=== PATIENT | female | born 1955 | race Caucasian/White ===

== ENCOUNTER 2017-05-09 18:15 | Emergency (ER) | payer OTHER, MEDICAID ==
[2017-05-09 18:37] VITALS: BP 135/76; PULSE 68; RESP 18; TEMP 98.8; O2SAT 100
--- NOTE | 2017-05-09 19:46 | ED PDOC ---
HPI: Head Injury Time Seen by Provider: 05/09/17 18:45 Chief Complaint (Nursing): Trauma Chief Complaint (Provider): Head injury History Per: Patient History/Exam Limitations: no limitations Injury Occurred (Timing): Just Before Arrival Onset/Duration Of Symptoms: Mins Patient States: Fell Striking Head Loss Of Consciousness: No Additional History Per: Patient Additional Complaint(s): 61yo female with no past medical history, presents to ED for evaluation after she sustained a head injury prior to arrival. Patient states she was walking up the stairs when she tripped and fell over 4 steps and hit her head. She denies any loss of consciousness but is now reporting a headache, and dizziness. Patient is accompanied by her son in the ER who reports she has her normal affect. Patient denies any nausea, vomiting or vision changes. She also denies taking any blood thinners. She offers no other medical complaints. PCP: Dr. Garcia Past Medical History Reviewed: Historical Data, Nursing Documentation, Vital Signs Vital Signs: Last Vital Signs Temp 98.8 F 05/09/17 18:35 Pulse 68 05/09/17 18:35 Resp 18 05/09/17 18:35 BP 135/76 05/09/17 18:35 Pulse Ox 100 05/09/17 18:35 - Medical History PMH: No Chronic Diseases - Surgical History Surgical History: Cholecystectomy, Hernia Repair - Family History Family History: States: No Known Family Hx - Living Arrangements Living Arrangements: With Family - Social History Current smoker - smoking cessation education provided: No Alcohol: None Drugs: Denies - Home Medications Home Medications: Ambulatory Orders Medication Instructions Recorded Acetaminophen [Acetaminophen 8 650 mg PO Q8 #24 tablet.er 05/09/17 Hour] - Allergies Allergies/Adverse Reactions: Allergies Allergy/AdvReac Type Severity Reaction Status Date / Time No Known Allergies Allergy Verified 05/09/17 18:35 Review of Systems ROS Statement: Except As Marked, All Systems Reviewed And Found Negative Eyes: Negative for: Vision Change Gastrointestinal: Negative for: Nausea, Vomiting Neurological: Positive for: Headache, Dizziness. Negative for: Altered Mental Status Physical Exam - Reviewed Nursing Documentation Reviewed: Yes Vital Signs Reviewed: Yes - Physical Exam Comments: GENERAL APPEARANCE: Patient is awake, alert, oriented x 3, in no acute distress. SKIN: Warm, dry; (-) cyanosis; (-) rash. HEAD: (+) left parietal scalp tenderness, superficial abrasions (+) mild erythema (-) hematoma, (-) temporal artery tenderness. EYES: (-) conjunctival pallor, (-) scleral icterus. (+) PERRL (-) orbital tenderness ENMT: (-) sinus tenderness, (-) nasal tenderness; mucous membranes moist. (+) TM clear bilaterally (-) hemotympanum NECK: Supple, FROM (-) rigidity (-) tenderness, (-) stiffness, (-) meningismus, (-) lymphadenopathy. CHEST AND RESPIRATORY: (-) rales, (-) rhonchi, (-) wheezes; breath sounds equal bilaterally. HEART AND CARDIOVASCULAR: (-) irregularity; (-) murmur, (-) gallop. ABDOMEN AND GI: Soft; (-) tenderness (-) guarding (-) distention. EXTREMITIES: (-) deformity. NEURO AND PSYCH: Mental status as above. 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 Strength symmetric. Cerebellar tests intact. Gait steady in ED without assistance. - ECG O2 Sat by Pulse Oximetry: 100 (RA) Pulse Ox Interpretation: Normal Medical Decision Making Medical Decision Making: Impression: Head injury, headache s/p fall Plan: -- CT Head w/o contrast -- Tylenol 650 mg PO Time: 2050 CT Head FINDINGS: Brain: Minimal atrophy. No intracranial hemorrhage. No mass. No edema. Ventricles: No hydrocephalus. Bones/joints: No acute fracture. Soft tissues: LEFT frontal parietal soft tissue swelling. Sinuses: No acute sinusitis. Mastoid air cells: No mastoid effusion. Orbits: Unremarkable as visualized. IMPRESSION: 1. No intracranial hemorrhage. 2. Incidental/non-acute findings are described above. Time: 2099 Patient remains awake, alert, oriented x 3 and is laying in bed comfortably. On exam, neck is supple, lungs are clear, abdomen is soft and non tender, heart is at regular rate and rhythm. Repeat neurological exam shows no focal findings. Patient informed of CT head findings and is stable for discharge home. Advised to follow up with primary care physician in 1-2 days without fail. Advised to take medication as prescribed. Return to the emergency room at any time for any new or worsening symptoms. Patient states she fully agrees with and understands discharge instructions. States that she agrees with the plan and disposition. Verbalized and repeated discharge instructions and plan. I have given the patient opportunity to ask any additional questions. Scribe Attestation: Documented by Abby Hester acting as a scribe for NORBERTO Jordan Provider Attestation: All medical record entries made by the Scribe were at my direction and personally dictated by me. I have reviewed the chart and agree that the record accurately reflects my personal performance of the history, physical exam, medical decision making, and the department course for this patient. I have also personally directed, reviewed, and agree with the discharge instructions and disposition. Disposition - Clinical Impression Clinical Impression: Closed head injury without loss of consciousness, Headache - Patient ED Disposition Is Patient to be Admitted: No Counseled Patient/Family Regarding: Studies Performed, Diagnosis, Need For Followup, Rx Given - Disposition Referrals: [facility] [Provider Group] Sacha Nguyen MD [Family Provider] - Disposition: Routine/Home Disposition Time: 21:02 Condition: STABLE Prescriptions: Acetaminophen [Acetaminophen 8 Hour] 650 mg PO Q8 #24 tablet.er Instructions: Concussion in Adults, Postconcussion Syndrome, Headache, Adult, Closed Head Injury Forms: [facility] (Citizen [place]) Print Language: FINNISH - POA Present On Arrival: None
--- NOTE | 2017-05-09 20:51 | CT ---
EXAM: CT Head Without Intravenous Contrast CLINICAL HISTORY: 61 years old, female; Injury or trauma; Fall; Initial encounter; Concussion / head injury; Without loss of consciousness; Additional info: Closed head injury S/P fall. Sent phy. Doc. TECHNIQUE: Axial computed tomography images of the head/brain without intravenous contrast. All CT scans at this facility use one or more dose reduction techniques, viz.: automated exposure control; ma/kV adjustment per patient size (including targeted exams where dose is matched to indication; i.e. head); or iterative reconstruction technique. Coronal and sagittal reformatted images were created and reviewed. COMPARISON: No relevant prior studies available. FINDINGS: Brain: Minimal atrophy. No intracranial hemorrhage. No mass. No edema. Ventricles: No hydrocephalus. Bones/joints: No acute fracture. Soft tissues: LEFT frontal parietal soft tissue swelling. Sinuses: No acute sinusitis. Mastoid air cells: No mastoid effusion. Orbits: Unremarkable as visualized. IMPRESSION: 1. No intracranial hemorrhage. 2. Incidental/non-acute findings are described above.
== END 2017-05-09 21:18 | disposition home or self-care (01) ==
LOC: H.ER 18:15
DX: S09.90XA Unspecified injury of head, initial encounter (principal); R51 Headache; W10.9XXA Fall (on) (from) unspecified stairs and steps, initial encounter